=== PATIENT | female | born 1985 | race Two or more races ===

== ENCOUNTER → 2025-06-05 | Outpatient (CLI) | payer MEDICAID, SELFPAY ==
--- NOTE | 2025-06-05 16:15 | XR_ITS ---
Examination: Thoracic spine 3 views TECHNIQUE: AP, lateral, coned-down lateral upper dorsal spine 3 views Date and time: June 05, 2025, 1622 hours INDICATIONS: Back pain 10 years. FINDINGS: Thoracic levoscoliosis 6 degrees which may be positional No thoracic fracture Minimal thoracic disc narrowing diffusely Intact pedicles IMPRESSION: Minimal thoracic degenerative disc disease.
== END | disposition home or self-care (01) ==
PROVIDERS: PCP Nurse Practitioner Primary Care; Referring Provider Nurse Practitioner Primary Care; Visit Provider Nurse Practitioner Primary Care
DX: M51.34 Other intervertebral disc degeneration, thoracic region (principal)
CPT/HCPCS: 72072

== ENCOUNTER 2025-09-10 08:29 | Outpatient (RCR) | payer MEDICAID, SELFPAY ==
--- NOTE | 2025-09-10 13:01 | PTNOTE_ITS ---
PT OP Initial Eval Patient Information Outpatient Physical Therapy Treatment Date: 09/10/25 Visit Reasons: Thoracic DDD Medical Diagnosis: M51.34 M41.84 Start of Care: 09/10/25 Date of Onset: 3 yrs ago Smoking Status Smoking Status: Never smoker Initial Assessment Subjective: Pt is 40 yr old andorran speaking female who reports LBP x3 yrs. She denies pain the T/S. Pt reports pain radiating down the L LE at times which limits bending, lifting and HH chore tolerances. PMH: none reported Imaging: MRI of L/S and Xrays of T/S in EMR Pt goal: to get rid of the pain Objective: T/S AROM: ? Flexion: WNL ? Side bending: pain to the R in the L/S ? Periscapular mm strength: ? mid traps: 4/5 ? low traps: 4-/5 ? Scapular stability: 4/5 ? TTP: none of thoracic paraspinals Assessment: Pt presents with LBP and L LE pain consistent with MRI that reveals 7mm disc bulge at L4-5. The T/S isn't bothering her but the therapy order is for T/S pain. She will need an order and authorization for the L/S to do therapy on that part. 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
== END 2025-10-06 23:59 | disposition home or self-care (01) ==
LOC: CPTX 08:29
PROVIDERS: PCP Nurse Practitioner Primary Care; Referring Provider Nurse Practitioner Primary Care; Visit Provider Nurse Practitioner Primary Care
DX: M51.34 Other intervertebral disc degeneration, thoracic region (principal); M41.84 Other forms of scoliosis, thoracic region
CPT/HCPCS: 97162